=== PATIENT | male | born 1955 | race Caucasian/White ===

== ENCOUNTER → 2020-05-11 | Outpatient (CLI) | payer BC | LOC: RAD 07:13 | PROVIDERS: ATTEND Internal Medicine | DX: C37 Malignant neoplasm of thymus (principal) | CPT/HCPCS: 78815; A9552 ==

== ENCOUNTER → 2020-11-15 | Outpatient (CLI) | payer BC ==
--- NOTE | 2020-11-15 08:49 | RADIOLOGY REPORT (SQ) ---
EXAM DESCRIPTION: CT CHEST WITH IMAGES COMPLETED DATE/TIME: 11/15/2020 8:32 am REASON FOR STUDY: THYMUS C37 MALIGNANT NEOPLASM OF THYMUS COMPARISON: PET-CT dated 05/11/2020 outside PET-CT dated 10/30/2019 TECHNIQUE: CT scan of the chest performed using helical scanning technique with dynamic intravenous contrast injection. Images reviewed with lung, soft tissue and bone windows. Reconstructed coronal and sagittal MPR and MIP images reviewed. All images stored on PACS. All CT scanners at this facility use dose modulation, iterative reconstruction, and/or weight based d osing when appropriate to reduce radiation dose to as low as reasonably achievable (ALARA). [facility]: Dose Right [facility]: CareDose [facility]: Dose Right [facility]: Teradose 4D [facility]: Twinklr CONTRAST TYPE AND DOSE: contrast/concentration: Isovue 350.00 mmol/ml; Total Contrast Delivered: 80. 0 ml; Total Saline Delivered: 40.0 ml RENAL FUNCTION: Creatinine 0.8 RADIATION DOSE: CT Rad equipment meets quality standard of care and radiation dose reduction techniq ues were employed. CTDIvol: 16.7 mGy. DLP: 741 mGy-cm. . LIMITATIONS: None. FINDINGS: LUNGS AND PLEURA: No significant change in the small left-sided subpleural nodules and are as of pleural thickening. No change in shape or morphology. HILAR AND MEDIASTINAL STRUCTURES: No significant change in the soft tissue mass in the prevascular sp caitlin. This measures 5.5 x 3.4 cm in greatest diameter. HEART AND VASCULAR STRUCTURES: No aneurysm or dissection. No central pulmonary emboli. No pericardi al effusion. HARDWARE: None in the chest. UPPER ABDOMEN: Small nonobstructing left renal calculi. Small nonspecific periaortic lymph nodes. THYROID AND OTHER SOFT TISSUES: No masses. No adenopathy. BONES: No significant finding. OTHER: No other significant finding. IMPRESSION: 1. Stable subpleural left-sided pulmonary nodules. 2. Stable soft tissue mass in the upper mediastinum in the prevascular space. No new findings. TECHNICAL DOCUMENTATION: JOB ID: [id number] Quality ID # [id number]: Final reports with documentation of one or more dose reduction techniques (e.g., Au tomated exposure control, adjustment of the mA and/or kV according to patient size, use of iterative reconstruction technique) 2010 [employer]- All Rights Reserved Reading location - IP/workstation name: [email or web address]
== END ==
LOC: RAD 08:12
PROVIDERS: ATTEND Internal Medicine
DX: C37 Malignant neoplasm of thymus (principal)
CPT/HCPCS: 71260; 82565